=== PATIENT | male | born 1955 | race Caucasian/White ===

== ENCOUNTER 2017-04-09 13:17 | Inpatient (IN) | payer MEDICARE ==
[2017-04-09] MEDS ORDERED: IBUPROFEN 600 MG TABLET PO ONE (14:54)
--- NOTE | 2017-04-09 14:58 | ER Document Report ---
ED General - General Chief Complaint: Fever Stated Complaint: FEVER,HEADACHE Time Seen by Provider: 04/09/17 14:44 Mode of Arrival: Ambulatory Information source: Patient Notes: This is a 61-year-old male who presents for evaluation of fever, chills, and myalgias for the past 4 days. He states that he has felt subjective fevers and chills for 4 days but does not have a thermometer at home. He has been "aching all over". He also has a mild headache today. Of note he did have a "stomach virus" about 1 week ago but the vomiting and diarrhea has resolved. He also notes some dysuria for the past week. He has been tolerating PO ate a sausage biscuit for breakfast today without difficulty. His primary care physician is Dr. Moe. He has a prior history of BPH and an aortic dissection about 15 years ago. He also has hypertension, hyperlipidemia and GERD. Been compliant with his antihypertensive medications. TRAVEL OUTSIDE OF THE [place] IN LAST 30 DAYS: No Past Medical History - General Information source: Patient - Social History Smoking Status: Never Smoker Family History: Reviewed & Not Pertinent - Past Medical History Cardiac Medical History: Reports: Hx Hypercholesterolemia, Hx Hypertension, Other - aortic dissection 2001 Renal/ Medical History: Denies: Hx Peritoneal Dialysis GI Medical History: Reports: Hx Gastroesophageal Reflux Disease Review of Systems - Review of Systems Constitutional: See HPI, Chills, Fever, Malaise EENT: No symptoms reported Cardiovascular: No symptoms reported. denies: Chest pain, Palpitations Respiratory: No symptoms reported. denies: Cough Gastrointestinal: No symptoms reported, See HPI Genitourinary: See HPI Musculoskeletal: No symptoms reported, Muscle pain Skin: No symptoms reported Hematologic/Lymphatic: No symptoms reported Neurological/Psychological: No symptoms reported, See HPI Physical Exam - Vital signs Vitals: Temp Pulse Resp BP Pulse Ox 98 F 66 14 122/63 99 04/09/17 13:21 04/09/17 13:21 04/09/17 13:21 04/09/17 13:21 04/09/17 13:21 - Notes Notes: PHYSICAL EXAMINATION: GENERAL: Well-appearing, well-nourished and in no acute distress. Pleasant and conversant HEAD: Atraumatic, normocephalic. EYES: Pupils equal round and reactive to light, extraocular movements intact, sclera anicteric, conjunctiva are normal. ENT: nares patent, oropharynx clear without exudates. Moist mucous membranes. NECK: Normal range of motion, supple without lymphadenopathy LUNGS: Breath sounds clear to auscultation bilaterally and equal. No wheezes rales or rhonchi. HEART: Regular rate and rhythm without murmurs ABDOMEN: Soft, nontender, normoactive bowel sounds. No guarding, no rebound. No masses appreciated. EXTREMITIES: Normal range of motion, no pitting or edema. No cyanosis. NEUROLOGICAL: Cranial nerves grossly intact. Normal speech. No Gross focal motor or sensory deficits appreciated. PSYCH: Normal mood, normal affect. SKIN: Warm, Dry, normal turgor, no rashes or lesions noted. Course - Re-evaluation Re-evalutation: 04/09/17 19:[address] Mcgowan regarding observation given uncertain etiology of leukopenia, thrombocytopenia. Patient overall states that he does not feel well. Pt's blood had to be redrawn 3 times secondary to persistent clotting and platelet clumping, which led to delay in lab results today. No obvious source of infection found today, I suspect possible viral etiology. Dr. Mcgowan to evaluate in ED. - Vital Signs Vital signs: Temp Pulse Resp BP Pulse Ox 97.9 F 59 L 16 102/37 L 99 04/09/17 18:37 04/09/17 18:37 04/09/17 18:37 04/09/17 18:37 04/09/17 18:37 - Laboratory Result Diagrams: 04/09/17 17:44 04/09/17 15:25 Laboratory results interpreted by me: 04/09/17 04/09/17 04/09/17 15:25 15:25 17:44 WBC 1.5 L* RBC 4.18 L Hgb 13.1 L RDW 14.6 H Plt Count 56 L Monocytes % (Manual) 18 H Abs Neuts (Manual) 0.8 L Sodium 135.6 L Direct Bilirubin 0.5 H AST 81 H Urine Urobilinogen 2.0 H Discharge - Discharge Clinical Impression: Thrombocytopenia Leukopenia Qualifiers: Leukopenia type: unspecified Qualified Code(s): D72.819 - Decreased white blood cell count, unspecified Condition: Stable
[2017-04-09 16:12] LABS: APPEARANCE,URINE CLEAR; BILIRUBIN,URINE NEGATIVE (NEGATIVE); GLUCOSE, URINE NEGATIVE (NEGATIVE); KETONES,URINE NEGATIVE (NEGATIVE); LEUKOCYTE ESTERASE,URINE NEGATIVE (NEGATIVE); NITRITE,URINE NEGATIVE (NEGATIVE); PROTEIN,URINE NEGATIVE (NEGATIVE); URINE SPECIFIC GRAVITY 1.012
[2017-04-09 16:27] LABS: ALANINE AMINOTRANSFERASE 55 U/L (21-72); ALBUMIN 3.5 g/dL (3.5-5.0); ALKALINE PHOSPHATASE 92 U/L (38-126); ANION GAP 8 (5-19); ASPARTATE AMINO TRANSFERASE 81 U/L (17-59); BILIRUBIN,DIRECT 0.5 mg/dL (0.0-0.4); BLOOD UREA NITROGEN 19 mg/dL (7-20); CALCIUM 8.5 mg/dL (8.4-10.2); CARBON DIOXIDE 26 mmol/L (22-30); CHLORIDE 102 mmol/L (98-107); CREATININE RESULT 0.98 mg/dL (0.52-1.25); GLUCOSE 90 mg/dL (75-110); SODIUM 135.6 mmol/L (137-145)
--- NOTE | 2017-04-09 16:28 | RADIOLOGY REPORT (SQ) ---
EXAM DESCRIPTION: CHEST PA/LAT COMPLETED DATE/TIME: 04/09/2017 4:15 pm REASON FOR STUDY: cough, fever COMPARISON: None. EXAM PARAMETERS: NUMBER OF VIEWS: two views TECHNIQUE: Digital Frontal and Lateral radiographic views of the chest acquired. RADIATION DOSE: NA LIMITATIONS: none FINDINGS: LUNGS AND PLEURA: No acute opacities, masses or pneumothorax. No pleural effusion. MEDIASTINUM AND HILAR STRUCTURES: Age-appropriate. HEART AND VASCULAR STRUCTURES: Heart normal size. No evidence for failure. BONES: No acute findings. HARDWARE: Sternotomy. OTHER: No other significant finding. IMPRESSION: No acute finding. TECHNICAL DOCUMENTATION: JOB ID: [id number] [employer]- All Rights Reserved
[2017-04-09 18:08] LABS: HEMATOCRIT 38.9 % (37.9-51.0); HEMOGLOBIN 13.1 g/dL (13.5-17.0); HGB HCT DIFFERENCE 0.4; MEAN CORPUSCULAR HEMOGLOBIN 31.3 pg (27.0-33.4); MEAN CORPUSCULAR HGB CONC 33.6 g/dL (32.0-36.0); MEAN CORPUSCULAR VOLUME 93 fl (80-97); RED BLOOD COUNT 4.18 10^6/uL (4.35-5.55); RED CELL DISTRIBUTION WIDTH 14.6 % (11.5-14.0)
[2017-04-09 18:20] LABS: BASOPHILS % (MANUAL) 0 % (0-2); EOSINOPHILS % (MANUAL) 0 % (0-6); LYMPHOCYTES % (MANUAL) 28 % (13-45); TOTAL CELLS COUNTED 50
[2017-04-09 18:23] LABS: OVALOCYTES SLIGHT; POIKILOCYTOSIS SLIGHT
[2017-04-09 18:26] LABS: WHITE BLOOD COUNT 1.5 10^3/uL (4.0-10.5)
[2017-04-09] MEDS ORDERED: HYDROCODONE/ACETAMINOPHEN 5-325 MG TABLET PO ONE (18:42)
--- NOTE | 2017-04-09 19:54 | RADIOLOGY REPORT (SQ) ---
EXAM DESCRIPTION: CT HEAD WITHOUT COMPLETED DATE/TIME: 04/09/2017 7:20 pm REASON FOR STUDY: headache, thrombocytopenia COMPARISON: None. TECHNIQUE: Axial images acquired through the brain without intravenous contrast. Images reviewed wi th bone, brain and subdural windows. Images stored on PACS. All CT scanners at this facility use dose modulation, iterative reconstruction, and/or weight based d osing when appropriate to reduce radiation dose to as low as reasonably achievable (ALARA). [facility]: Dose Right [facility]: CareDose [facility]: Dose Right [facility]: Teradose 4D [facility]: Seeqpod RADIATION DOSE: 64.61 mGy. LIMITATIONS: None. FINDINGS: VENTRICLES: Normal size and contour. CEREBRUM: No masses. No hemorrhage. No midline shift. Normal pierson/white matter differentiation. N o evidence for acute infarction. CEREBELLUM: No masses. No hemorrhage. No alteration of density. No evidence for acute infarction. EXTRAAXIAL SPACES: No fluid collections. No masses. ORBITS AND GLOBE: No intra- or extraconal masses. Normal contour of globe without masses. CALVARIUM: No fracture. PARANASAL SINUSES: No fluid or mucosal thickening. SOFT TISSUES: No mass or hematoma. OTHER: No other significant finding. IMPRESSION: No acute intracranial findings. TECHNICAL DOCUMENTATION: JOB ID: [id number] Quality ID # [id number]: Final reports with documentation of one or more dose reduction techniques (e.g., Au tomated exposure control, adjustment of the mA and/or kV according to patient size, use of iterative reconstruction technique) 2010 [employer]- All Rights Reserved
[2017-04-09 20:31] LABS: PROTHROMBIN TIME 14.6 SEC (11.4-15.4)
[2017-04-09] MEDS ORDERED: NORMAL SALINE 1000 ML 1,000 ML IV ONE (20:31)
--- NOTE | 2017-04-09 21:09 | EKG REPORT ---
SEVERITY:- ABNORMAL ECG - SINUS RHYTHM VENTRICULAR BIGEMINY PROBABLE LEFT ATRIAL ABNORMALITY BORDERLINE LEFT AXIS DEVIATION NONSPECIFIC T ABNORMALITIES, ANT-LAT LEADS : Confirmed by: Andrews Mckeon 09-Apr-2017 21:09:01
[2017-04-09] MEDS: ACETAMINOPHEN 325 MG TABLET PO PRN (21:31)
[2017-04-09] MEDS: HEPARIN SOD (PORCINE) 5,000 UNIT/ML 1 ML SYRINGE SUBCUT SCH (21:31)
[2017-04-09] MEDS: MAG HYDROX/AL HYDROX/SIMETH SUSP 30 ML UDCUP PO PRN (21:56)
[2017-04-10] MEDS ORDERED: OXYCODONE HCL IR 5 MG TABLET PO PRN (00:13)
[2017-04-10] MEDS ORDERED: OXYCODONE HCL IR 5 MG TABLET ONE (00:17)
--- NOTE | 2017-04-10 00:31 | PDOC H&P ---
History of Present Illness Admission Date/PCP: 04/09/17 20:27 Patient complains of: Fever headache joint pain History of Present Illness: CARLO GUSTAFSON is a 61 year old male with a past medical history of remote aortic dissection, hypertension, dyslipidemia and chronic hepatitis C. Patient had been in his usual state of health until approximately 2 weeks ago with complaints of abdominal pain and diarrhea 3 days then a recurrence 5 days later with spontaneous resolution. This was consistent with symptoms of his grandchildren at the same time. However 4 days ago he began with generalized joint pain, headache fever and rigors prompting him to seek evaluation in the emergency room. He denies recent change or new medicine. He denies previous episode. In the emergency room he was found to have leukopenia of 1.5 with monocyte predominance, platelets of 56,000 and referred to the hospitalist for admission. Denies any recent weight loss rash or lymphadenopathy. Past Medical History Cardiac Medical History: Reports: Hyperlipidema, Hypertension, Other - aortic dissection 2001 Denies: Congestive Heart Failure, Myocardial Infarction Pulmonary Medical History: Denies: Asthma, Bronchitis, Chronic Obstructive Pulmonary Disease (COPD), Pneumonia, Tuberculosis Neurological Medical History: Denies: Seizures Renal/ Medical History: Denies: End Stage Renal Disease GI Medical History: Reports: Gastroesophageal Reflux Disease, Other - Chronic untreated hepatitis C Denies: Cirrhosis Musculoskeltal Medical History: Denies: Arthritis Psychiatric Medical History: Denies: Bipolar Disorder, Depression Hematology: Denies: Anemia, Bleeding Tendencies Past Surgical History Past Surgical History: Reports: Other - Aortic aneurysm repair Social History Information Source: Patient Lives with: Family Smoking Status: Never Smoker Frequency of Alcohol Use: None Drugs: None - Advance Directive Resuscitation Status: Full Code Family History Family History: DM, Other - Denies lymphoma or leukemia Parental Family History Reviewed: Yes Children Family History Reviewed: Yes Sibling(s) Family History Reviewed.: Yes Review of Systems Constitutional: ABSENT: chills, fever(s), headache(s), weight gain, weight loss Eyes: ABSENT: visual disturbances Ears: ABSENT: hearing changes Cardiovascular: ABSENT: chest pain, dyspnea on exertion, edema, orthropnea, palpitations Respiratory: ABSENT: cough, hemoptysis Gastrointestinal: ABSENT: abdominal pain, constipation, diarrhea, hematemesis, hematochezia, nausea, vomiting Genitourinary: ABSENT: dysuria, hematuria Musculoskeletal: ABSENT: joint swelling Integumentary: ABSENT: rash, wounds Neurological: ABSENT: abnormal gait, abnormal speech, confusion, dizziness, focal weakness, syncope Psychiatric: ABSENT: anxiety, depression, homidical ideation, suicidal ideation Endocrine: ABSENT: cold intolerance, heat intolerance, polydipsia, polyuria Hematologic/Lymphatic: ABSENT: easy bleeding, easy bruising Physical Exam Vital Signs: Temp Pulse Resp BP Pulse Ox 97.9 F 52 L 18 132/54 H 100 04/09/17 18:37 04/09/17 22:16 04/09/17 22:16 04/09/17 22:16 04/09/17 22:16 General appearance: PRESENT: no acute distress, well-developed, well-nourished Head exam: PRESENT: atraumatic, normocephalic Eye exam: PRESENT: conjunctiva pink, EOMI, PERRLA. ABSENT: scleral icterus Ear exam: PRESENT: normal external ear exam Mouth exam: PRESENT: moist, tongue midline Neck exam: ABSENT: carotid bruit, JVD, lymphadenopathy, thyromegaly Respiratory exam: PRESENT: clear to auscultation neal. ABSENT: rales, rhonchi, wheezes Cardiovascular exam: PRESENT: RRR. ABSENT: diastolic murmur, rubs, systolic murmur Pulses: PRESENT: normal dorsalis pedis pul Vascular exam: PRESENT: normal capillary refill GI/Abdominal exam: PRESENT: normal bowel sounds, soft. ABSENT: distended, guarding, mass, organolmegaly, rebound, tenderness Rectal exam: PRESENT: deferred Extremities exam: PRESENT: full ROM. ABSENT: calf tenderness, clubbing, pedal edema Neurological exam: PRESENT: alert, awake, oriented to person, oriented to place , oriented to time, oriented to situation, CN II-XII grossly intact. ABSENT: motor sensory deficit Psychiatric exam: PRESENT: appropriate affect, normal mood. ABSENT: homicidal ideation, suicidal ideation Skin exam: PRESENT: dry, intact, warm. ABSENT: cyanosis, rash Results Impressions: Chest X-Ray 04/09/17 14:53 IMPRESSION: No acute finding. Head CT 04/09/17 18:42 IMPRESSION: No acute intracranial findings. Assessment & Plan - Diagnosis (1) Hepatitis C Qualifiers: Viral hepatitis chronicity: chronic Is this a current diagnosis for this admission?: YesPlan: Chronic and untreated. No evidence of cryoglobulinemia. Concern for hepatitis C related myelodysplasia with thrombocytopenia and leukopenia. will obtain GI consultation (2) Leukopenia Qualifiers: Leukopenia type: unspecified Qualified Code(s): D72.819 - Decreased white blood cell count, unspecified Is this a current diagnosis for this admission?: YesPlan: Suspected myelodysplasia will repeat CBC and obtain hematology consult (3) Thrombocytopenia Is this a current diagnosis for this admission?: YesPlan: Concern for lymphoma, will obtain hematology consult - Time Time Spent: 50 to 70 Minutes - Inpatient Certification Medical Necessity: Need Close Monitoring Due to Risk of Patient Decompensation
[2017-04-10 03:07] LABS: ADD HIVPANEL? NO; HIV (1 AND 2) ANTIBODY NEGATIVE (NEGATIVE)
[2017-04-10] MEDS: HEPARIN SOD (PORCINE) 5,000 UNIT/ML 1 ML SYRINGE SUBCUT SCH (05:25)
[2017-04-10 07:00] LABS: ALANINE AMINOTRANSFERASE 51 U/L (21-72); ALBUMIN 2.6 g/dL (3.5-5.0); ALKALINE PHOSPHATASE 67 U/L (38-126); ANION GAP 5 (5-19); ASPARTATE AMINO TRANSFERASE 64 U/L (17-59); BILIRUBIN,DIRECT 0.4 mg/dL (0.0-0.4); BILIRUBIN,TOTAL 0.8 mg/dL (0.2-1.3); BLOOD UREA NITROGEN 18 mg/dL (7-20); CARBON DIOXIDE 23 mmol/L (22-30); CHLORIDE 107 mmol/L (98-107); CREATININE RESULT 0.89 mg/dL (0.52-1.25); GLUCOSE 85 mg/dL (75-110); POTASSIUM 4.3 mmol/L (3.6-5.0); TOTAL PROTEIN 5.6 g/dL (6.3-8.2)
[2017-04-10 08:08] LABS: ABSOLUTE LYMPHOCYTES (AUTO) 0.3 10^3/uL (0.5-4.7); ABSOLUTE MONOCYTES (AUTO) 0.2 10^3/uL (0.1-1.4); ABSOLUTE NEUT (AUTO) 0.5 10^3/uL (1.7-8.2); BASOPHILS % (AUTO) 1.3 % (0-2); EOSINOPHILS % (AUTO) 0.6 % (0-6); HEMATOCRIT 34.3 % (37.9-51.0); HEMOGLOBIN 11.5 g/dL (13.5-17.0); HGB HCT DIFFERENCE 0.2; LYMPHOCYTES % (AUTO) 31.4 % (13-45); MEAN CORPUSCULAR HEMOGLOBIN 31.3 pg (27.0-33.4); MEAN CORPUSCULAR HGB CONC 33.7 g/dL (32.0-36.0); MEAN CORPUSCULAR VOLUME 93 fl (80-97); MONOCYTES % (AUTO) 17.3 % (3-13); RED BLOOD COUNT 3.69 10^6/uL (4.35-5.55); RED CELL DISTRIBUTION WIDTH 14.4 % (11.5-14.0); SEGMENTED NEUTROPHILS % (AUTO) 49.4 % (42-78)
[2017-04-10] MEDS: ACETAMINOPHEN 325 MG TABLET PO PRN ×2 (08:47→21:29)
[2017-04-10] MEDS: DOCUSATE SODIUM 100 MG CAPSULE PO SCH ×2 (09:29→17:27)
[2017-04-10 09:36] LABS: ANISOCYTOSIS SLIGHT; OVALOCYTES SLIGHT; POIKILOCYTOSIS 1+
[2017-04-10 09:37] LABS: ROULEAUX SLIGHT; TARGET CELLS SLIGHT; TEAR DROP CELLS SLIGHT
[2017-04-10] MEDS ORDERED: VANCOMYCIN HCL 0 MG in DEXTROSE 5%-WATER 250 ML IV NR (10:30)
--- NOTE | 2017-04-10 10:49 | PROGRESS NOTE E ---
Progress Note NAME: CARLO GUSTAFSON : 1955 AGE: 61Y DATE: 04/10/2017 ROOM: 431 Time spent managing the patient was 35 minutes. SUBJECTIVE: The patient still feels generally weak. He is having low-grade fevers and complains of headaches that have been going on for the past 4 days. It sounds like he may have had some photophobia as well as he was wanting to lay in a dark room all the time for the past 4 days. He has no nausea or vomiting. He has no neck stiffness. OBJECTIVE: VITAL SIGNS: Temperature 97.6, recent temperature 100.2. Blood pressure 122/49, pulse 52, respirations 17. GENERAL: The patient is alert but somewhat ill appearing, answers questions appropriately. HEENT: Sclera is nonicteric. Conjunctivae are clear. Extraocular eye movements are intact. Pupils equal, round and reactive to light and accommodation. Oropharynx has moist mucous membranes. NECK: No nuchal rigidity noted. RESPIRATORY: Clear to auscultation in all lung green. No rhonchi. CARDIAC: Regular rate and rhythm. No murmurs, gallops, rubs. ABDOMEN: Soft, nontender, and nondistended. Positive bowel sounds. No rebound. No guarding. EXTREMITIES: Have no edema, cyanosis, clubbing. NEUROLOGIC: Cranial nerves intact. Good strength and sensation in all 4 extremities. IMAGING: Head CT shows no acute intracranial findings. The patient has no sinus disease noted on head CT. Chest x-ray shows no acute process. LABORATORY STUDIES: White blood count is 1, hemoglobin 11.5, platelets 54. Rhea test and HIV screen are negative. Urinalysis is negative. Blood cultures are pending. ASSESSMENT AND PLAN: 1. SYSTEMIC INFLAMMATORY RESPONSE SYNDROME. Exact etiology is unclear at this time. Given the patient's negative workup so far and the fact that he has headaches and possible photophobia, I am compelled to rule out meningitis. I will start him empirically on IV Rocephin, IV Unasyn, IV vancomycin and IV acyclovir. The patient is at risk for developing SECTION [employer] WARDEN infection given leukopenia. Will check lumbar puncture. 2. HEADACHE AND FEVERS. Rule out meningitis as mentioned above. Treat empirically for now. Also check a sed rate and vasculitis panel. Check Lyme titer and [place] Spotted Fever titer. The patient denies tick exposure. 3. LEUKOPENIA/THROMBOCYTOPENIA. Possibly secondary to acute infection. Also possibly secondary to hepatitis C. Dr. Cavanaugh of Hematology is following. Treat infectious disease issues as mentioned above. Evaluate for vasculitis as mentioned above. Use neutropenic precautions. Will discontinue subcutaneous heparin due to thrombocytopenia. 4. HEPATITIS C. This can be associated with certain vasculitis. I will check a vasculitis panel and sed rate. GI was consulted. The patient will need to follow up with GI. 5. HYPERTENSION. Hold blood pressure medicines for now due to low blood pressure readings. DICTATING PHYSICIAN: DARIA DOBBINS M.D. [id number] PHY#: [id number] [id number] JOB#: [id number] ACCT: [id number] cc: >
[2017-04-10] MEDS ORDERED: VANCOMYCIN HCL 1,000 MG in DEXTROSE 5%-WATER 250 ML IV ONE (11:00)
[2017-04-10] MEDS: OXYCODONE HCL IR 5 MG TABLET PO PRN ×2 (11:45→21:28)
[2017-04-10] MEDS ORDERED: CEFTRIAXONE 2 GM/D5W RTU 2 GM/50 ML RTUPB IV SCH (12:00)
[2017-04-10 12:15] LABS: PATH REVIEW PATHOLOGIST REVIEWED
[2017-04-10 13:49] LABS: FOLATE 9.64 ng/mL (>2.76)
--- NOTE | 2017-04-10 13:56 | RADIOLOGY REPORT (SQ) ---
EXAM DESCRIPTION: LUMBAR PUNCTURE; FLUORO/NEEDLE PLACEMENT/SPINE COMPLETED DATE/TIME: 04/10/2017 1:45 pm REASON FOR STUDY: WILDE, fever; WILDE, FEVER D61.818 OTHER PANCYTOPENIA COMPARISON: CT brain 04/09/2017 MRI brain 07/21/2016 FLUOROSCOPY TIME: 13 seconds 1 digital radiographic images saved to PACS. TECHNIQUE: Fluoroscopic guided lumbar puncture. LIMITATIONS: None. PROCEDURE: After written consent and assessment were obtained, the patient was brought into the fluo roscopy room and placed prone on the table. The patient's lower back was prepped in a sterile fashio n and an entry site was selected under live fluoroscopic guidance. The entry site was anesthetized wi th 4 mL of 1% lidocaine. A 22 gauge needle was advanced through the skin and into the thecal sac at t he level left paracentral L2-3 level. After approximately 8 ml was drained, the needle was removed a nd a sterile bandage was placed of the site. Specimens were sent to the lab for testing. A fluorosc opic spot image was saved to PACS confirming level access. FINDINGS: Clear CSF, opening pressure 15 cm of water. Fluid specimens were sent to the lab for test ing as per Dr. Bang. IMPRESSION: Lumbar puncture under fluoroscopy. No immediate complication. COMMENT: Patient medication list reviewed: Yes- Quality ID# [id number]:Eligible professional attests to doc umenting in the medical record they obtained, updated, or reviewed the patient's current medications. . Quality ID 145: Final reports for procedures using fluoroscopy that document radiation exposure clem tarun, or exposure time and number of fluorographic images (if radiation exposure indices are not avail able) TECHNICAL DOCUMENTATION: JOB ID: [id number] [employer]- All Rights Reserved
[2017-04-10] MEDS ORDERED: ACYCLOVIR SODIUM 750 MG in NORMAL SALINE 250 ML IV SCH (14:00)
[2017-04-10 14:16] LABS: GLUCOSE,CSF 47 mg/dL (40-70)
[2017-04-10 14:18] LABS: APPEARANCE ALL TUBES CLEAR; RBC SIDE 1 1; RBC SIDE 2 3
[2017-04-10 14:20] LABS: RBC DILUENT USED NONE USED; RBC DILUTION FACTOR 1; TOTAL RBC SQUARES COUNTED 225; WHITE BLOOD CELL,CSF 1 /uL (0-5)
[2017-04-10 14:29] LABS: H. INFLUENZAE TYPE B AG NEGATIVE (NEGATIVE); S. PNEUMONIAE AG NEGATIVE (NEGATIVE)
[2017-04-10 14:30] LABS: CSF CULTURED REQUIRED YES (CSFY); STREP. GROUP B AG NEGATIVE (NEGATIVE)
[2017-04-10] MEDS ORDERED: AMPICILLIN SODIUM/SULBACTAM NA 1.5 GM in NORMAL SALINE 50 ML IV SCH (15:00)
--- NOTE | 2017-04-10 15:09 | Physician Advisory Note ---
Physician Advisor ProgressNote .: Pursuant to the plan for [facility], I have reviewed the medical record for this patient. Physician Advisor Statement: Possible documentation opportunities if attending agrees: 1. "worsening pancytopenia, etiology unclear" 2. "suspected bacterial infection of unclear etiology" 3. If you believe pt has SIRS, please document what other criterion pt meets for this besides the WBC <4K - T>100.4 not yet documented, HR >90 & RR>20 not yet documened. Otherwise, please document this dx was r/o'd. - If you suspect pt has SIRS & infxn, you'll also need to specify whether or not you think pt has sepsis, & what it is likely due to. 3. "mild hyponatremia, possibly due to ___" [his home HCTZ tx?] As always, if concerned about any unstable VS or abnormal labs, please comment on them - what bad things they might indicate, why they concern you - & note what doing about them. Please also document each day the potential clinical problems you are concerned could occur if pt not kept in hospital for tx at this time. (These points are ackerman - if present in each note, attending's status decision should be sufficiently supported.) Discussion: 61yo male w/ chronic co-morbidities including HTN, HLD, chronic untx'd hep C, GERD, BPH, & aortic dissection in 2001 - typically taking Toprol XL 150mg/ Cosaar 100mg/HCTZ 25mg/ASA daily - presented 5/ PM to ED w/ F/C/mild HAs/myalgias/dysuria sx after recently recovering from a "stomach virus", photophobia. (+) T98, HR 66 (on beta-hamlet), RR14, BP 122/63, O2 sat 99%, but WBC 1.5K with ANC 800, Hgb 13.1, plts 56, Na 135.6, glc 90, BUN 19, Cr 0.98, AST 81. BP dropped as low as 102/37. Attending ordered leukemia/lymphoma panel, NS @200ml x1L, Hem-onc consult, GI consult, VS q4h, I/Os, daily wts, falls precautions, neutropenic precautions, then IV Rocephin/vanc/Unasyn/Acyclovir w/f/u labs & LP w/CSF cx, etc. Status: Attending concerned for bacterial infxn of unclear etiology, very concerned for worsening pancytopenia of unknown etiology, high risk for dangerous systemic infections given neutropenia, has mentioned possibility of myelodysphasia, lymphoma, acute meningitis, tick-borne illness, vasculitis. He is further concerned by the hypotension, & wants to hold pt's usual BP meds due to risk of developing worsening hypotension. Pt has become persistently bradycardic & feels generally weak today. Pt's pancytopenia has worsened on all counts. AST remains elevated. Hem-onc has ordered abd U/S w/doppler for AM for further eval. Pt has been under hospital care for 1MN already. There is no likelihood of pt being considered sufficiently stable for safe d/c today. Tx & monitoring in inpatient hospital setting medically reasonable & necessary to protect pt's health, safety, & medical condition. Appropriate for Inpt status. Thanks for your help with documentation accuracy/specificity improvement! Gloria Barajas MD [facility] Physician Advisor, Fellow of Hospital Medicine
[2017-04-10] MEDS: MAG HYDROX/AL HYDROX/SIMETH SUSP 30 ML UDCUP PO PRN (15:52)
--- NOTE | 2017-04-10 17:25 | Progress Note ---
Provider Note Provider Note: Lumbar puncture unremarkable for infection. Discontinue IV Unasyn, IV vancomycin, IV acyclovir. Continue IV Rocephin for now pending further cultures.
[2017-04-10] MEDS: OXYCODONE-ACETAMINOPHEN 5-325 MG TABLET PO PRN (17:30)
[2017-04-10] MEDS ORDERED: VANCOMYCIN HCL 1,000 MG in DEXTROSE 5%-WATER 250 ML IV SCH (18:00)
--- NOTE | 2017-04-10 18:37 | PDOC CONSULTATION ---
Consultation Consult Date: 04/10/17 Consult reason:: Cytopenias History of Present Illness Admission Date/PCP: 04/10/17 15:25 History of Present Illness: CARLO GUSTAFSON is a 61 year old male with a past medical history of remote aortic dissection, hypertension, dyslipidemia and chronic hepatitis C previously treated with Interferon and known prior cytopenias for at least the platelets. Patient had been in his usual state of health until approximately 2 weeks ago with complaints of abdominal pain and diarrhea 3 days following his grandchildren having the same symptoms. He then a recurrence 5 days later with spontaneous resolution. He reports losing approximately 20 pounds with these symptoms. However 4 days ago he began with generalized joint pain, headache, fever and rigors prompting him to seek evaluation in the emergency room. He denies recent change or new medicine. He denies previous episode. In the emergency room, he was found to have leukopenia of 1.5 with monocyte predominance, platelets of 56,000 and referred to the hospitalist for admission. Denies any recent weight loss rash or lymphadenopathy. He has been started on BSA's. His biggest complaint this am is a headache but he had a negative Head CT. Past Medical History Cardiac Medical History: Reports: Hyperlipidema, Hypertension, Other - aortic dissection 2001 Denies: Congestive Heart Failure, Myocardial Infarction Pulmonary Medical History: Denies: Asthma, Bronchitis, Chronic Obstructive Pulmonary Disease (COPD), Pneumonia, Tuberculosis Neurological Medical History: Denies: Seizures Renal/ Medical History: Denies: End Stage Renal Disease GI Medical History: Reports: Gastroesophageal Reflux Disease, Other - Chronic treated hepatitis C Denies: Cirrhosis Musculoskeltal Medical History: Denies: Arthritis Psychiatric Medical History: Denies: Bipolar Disorder, Depression Hematology: Denies: Anemia, Bleeding Tendencies Past Surgical History Past Surgical History: Reports: Other - Aortic aneurysm repair Social History Lives with: Family Smoking Status: Never Smoker Frequency of Alcohol Use: None Drugs: None - Advance Directive Resuscitation Status: Full Code Family History Family History: DM, Other - Denies lymphoma or leukemia Parental Family History Reviewed: Yes Children Family History Reviewed: Yes Sibling(s) Family History Reviewed.: Yes Medication/Allergy Home Medications: Aspirin [Aspirin 81 mg Chewable Tablet] 81 mg PO DAILY 04/10/17 Cetirizine HCl [Zyrtec 10 mg Tablet] 10 mg PO DAILY 04/10/17 Hydrochlorothiazide 25 mg PO DAILY 04/10/17 Losartan Potassium [Cozaar 100 mg Tablet] 100 mg PO DAILY 04/10/17 Metoprolol Succinate [Toprol XL 100 mg Tablet] 150 mg PO DAILY 04/10/17 Omeprazole 40 mg PO DAILY 04/10/17 Allergies/Adverse Reactions: No Known Allergies Allergy (Unverified 04/10/17 00:47) Review of Systems Constitutional: PRESENT: chills, weight loss Gastrointestinal: PRESENT: as per HPI Genitourinary: PRESENT: as per HPI Hematologic/Lymphatic: PRESENT: easy bruising Physical Exam Vital Signs: Temp Pulse Resp BP Pulse Ox 98.1 F 61 16 118/52 L 98 04/10/17 15:00 04/10/17 15:00 04/10/17 15:00 04/10/17 15:00 04/10/17 15:00 Intake & Output 04/09/17 04/10/17 04/11/17 06:59 06:59 06:59 Intake Total 600 Balance 600 General appearance: PRESENT: no acute distress Head exam: PRESENT: atraumatic, normocephalic Eye exam: PRESENT: EOMI, PERRLA Ear exam: PRESENT: normal external ear exam Mouth exam: PRESENT: neck supple, tongue midline Neck exam: PRESENT: full ROM Respiratory exam: PRESENT: clear to auscultation neal GI/Abdominal exam: PRESENT: normal bowel sounds, soft Neurological exam: PRESENT: alert, awake, oriented to person, oriented to place , oriented to time, oriented to situation, CN II-XII grossly intact Psychiatric exam: PRESENT: appropriate affect Results Impressions: Chest X-Ray 04/09/17 14:53 IMPRESSION: No acute finding. Head CT 04/09/17 18:42 IMPRESSION: No acute intracranial findings. Guidance Fluoroscopy 04/10/17 00:00 IMPRESSION: Lumbar puncture under fluoroscopy. No immediate complication. Lumbar Puncture 04/10/17 10:22 IMPRESSION: Lumbar puncture under fluoroscopy. No immediate complication. Assessment & Plan - Diagnosis (1) Hepatitis C Qualifiers: Viral hepatitis chronicity: chronic Is this a current diagnosis for this admission?: YesPlan: check titer (2) Leukopenia Qualifiers: Leukopenia type: unspecified Qualified Code(s): D72.819 - Decreased white blood cell count, unspecified Is this a current diagnosis for this admission?: YesPlan: Check flow cytometry and prior labs (3) Thrombocytopenia Is this a current diagnosis for this admission?: YesPlan: Suspect chronic from his h/o chronic hep C - Time Time Spent: 50 to 70 Minutes Critical Time spent with patient: 25-34 minutes Medications reviewed and adjusted accordingly: Yes Anticipated discharge: Home Within: within 72 hours
[2017-04-11] MEDS: MAG HYDROX/AL HYDROX/SIMETH SUSP 30 ML UDCUP PO PRN
--- NOTE | 2017-04-11 00:11 | EKG REPORT ---
SEVERITY:- ABNORMAL ECG - SINUS RHYTHM VENTRICULAR BIGEMINY PROBABLE LEFT ATRIAL ABNORMALITY NONSPECIFIC T ABNORMALITIES, ANT-LAT LEADS : Confirmed by: Andrews Mckeon 11-Apr-2017 00:10:59
[2017-04-11] MEDS ORDERED: LANSOPRAZOLE 30 MG TAB.RAP.DR PO SCH (06:00)
[2017-04-11 06:48] LABS: ALANINE AMINOTRANSFERASE 48 U/L (21-72); ALBUMIN 2.8 g/dL (3.5-5.0); ALKALINE PHOSPHATASE 85 U/L (38-126); ANION GAP 6 (5-19); ASPARTATE AMINO TRANSFERASE 71 U/L (17-59); BILIRUBIN,DIRECT 0.4 mg/dL (0.0-0.4); BILIRUBIN,TOTAL 0.6 mg/dL (0.2-1.3); BLOOD UREA NITROGEN 15 mg/dL (7-20); CALCIUM 7.9 mg/dL (8.4-10.2); CARBON DIOXIDE 25 mmol/L (22-30); CHLORIDE 104 mmol/L (98-107); CREATININE RESULT 0.81 mg/dL (0.52-1.25); GLUCOSE 107 mg/dL (75-110); POTASSIUM 4.4 mmol/L (3.6-5.0)
[2017-04-11] MEDS: OXYCODONE-ACETAMINOPHEN 5-325 MG TABLET PO PRN (06:51)
[2017-04-11 06:57] LABS: HEMATOCRIT 36.6 % (37.9-51.0); HEMOGLOBIN 12.3 g/dL (13.5-17.0); HGB HCT DIFFERENCE 0.3; MEAN CORPUSCULAR HEMOGLOBIN 31.3 pg (27.0-33.4); MEAN CORPUSCULAR HGB CONC 33.5 g/dL (32.0-36.0); MEAN CORPUSCULAR VOLUME 93 fl (80-97); RED BLOOD COUNT 3.92 10^6/uL (4.35-5.55); RED CELL DISTRIBUTION WIDTH 14.4 % (11.5-14.0); WHITE BLOOD COUNT 1.9 10^3/uL (4.0-10.5)
[2017-04-11 07:20] LABS: HEPATITIS C VIRUS AB >11.0 s/co ratio (0.0-0.9)
[2017-04-11 07:23] LABS: BASOPHILS % (MANUAL) 2 % (0-2); EOSINOPHILS % (MANUAL) 4 % (0-6); LYMPHOCYTES % (MANUAL) 46 % (13-45); TOTAL CELLS COUNTED 50
[2017-04-11 07:28] LABS: ANISOCYTOSIS SLIGHT; OVALOCYTES SLIGHT; POIKILOCYTOSIS SLIGHT; ROULEAUX 1+
--- NOTE | 2017-04-11 08:05 | RADIOLOGY REPORT (SQ) ---
EXAM DESCRIPTION: U/S ABDOMEN COMPLETE W/DOPPLER COMPLETED DATE/TIME: 04/11/2017 7:23 am REASON FOR STUDY: EVAL OF LIVER AND SPLEEN D61.818 OTHER PANCYTOPENIA COMPARISON: Abdominal ultrasound 07/04/2016 TECHNIQUE: Dynamic and static grayscale images acquired of the abdomen and recorded on PACS. Induo pattie selected color Doppler and spectral images recorded. LIMITATIONS: None. FINDINGS: PANCREAS: Midline pancreas unremarkable LIVER: No masses. Coarse echotexture from diffuse hepatocellular disease. LIVER VASCULATURE: Normal directional flow of the main portal vein and hepatic veins. GALLBLADDER: There is right upper quadrant free fluid along the subphrenic space, and in the gallblad dev fossa. There is diffuse gallbladder wall thickening, up to 9 mm in thickness. No gallstones. ULTRASOUND-DETECTED MORALES'S SIGN: Negative. INTRAHEPATIC DUCTS AND COMMON DUCT: CBD and intrahepatic ducts normal caliber. No filling defects. C ommon bile duct at the thaddeus hepatis 3.7 mm. Distal most common duct not well seen. INFERIOR VENA CAVA: Normal flow. AORTA: No aneurysm. RIGHT KIDNEY: Normal size. Normal echogenicity. No solid or suspicious masses. No hydronephros is. No calcifications. LEFT KIDNEY: Normal size. Normal echogenicity. No solid or suspicious masses. No hydronephrosi s. No calcifications. SPLEEN: 20 cm in length, increased compared dated 07/04/2016, when it measured about 15 cm in length. PERITONEAL AND PLEURAL SPACES: Trace ascites OTHER: No other significant finding. IMPRESSION: Splenomegaly, 20 cm in length Small amount of right subphrenic and gallbladder fossa free fluid. Gallbladder wall thickening, nonspecific in the setting of ascites TECHNICAL DOCUMENTATION: JOB ID: [id number] [employer]- All Rights Reserved
--- NOTE | 2017-04-11 09:15 | PDOC DISCHARGE SUMMARY ---
General - Admit/Disc Date/PCP Admission Date/Primary Care Provider: 04/10/17 15:25 Discharge Date: 04/11/17 - Discharge Diagnosis (1) Sinusitis Is this a current diagnosis for this admission?: YesSummary: Patient presented with headache, photophobia, fever. Lumbar puncture was unremarkable for infection. Lyme titer is pending. Patient responded to empiric IV Rocephin. We will complete oral doxycycline for sinusitis. Patient can follow-up with Dr. Cavanaugh for further pending lab results specifically Lyme titer. (2) Hypertension Is this a current diagnosis for this admission?: YesSummary: Patient blood pressure medicines were initially held secondary to low blood pressure readings. I will decrease his metoprolol to 100 mg daily. Continue hydrochlorothiazide and Cozaar. (3) Headache Is this a current diagnosis for this admission?: Yes (4) Fever Is this a current diagnosis for this admission?: Yes (5) Hepatitis C Is this a current diagnosis for this admission?: YesSummary: Right upper quadrant ultrasound showed findings consistent with cirrhosis and splenomegaly. (6) Leukopenia Is this a current diagnosis for this admission?: YesSummary: Was evaluated by Dr. Cavanaugh of hematology. She feels as though leukopenia and thrombocytopenia are secondary to hepatitis C/cirrhosis. Patient will follow up with Dr. Cavanaugh as an outpatient. (7) Thrombocytopenia Is this a current diagnosis for this admission?: Yes - Additional Information Resuscitation Status: Full Code Discharge Diet: Cardiac Discharge Activity: Activity As Tolerated Home Medications: Cetirizine HCl [Zyrtec 10 mg Tablet] 10 mg PO DAILY 04/10/17 Hydrochlorothiazide 25 mg PO DAILY 04/10/17 Losartan Potassium [Cozaar 100 mg Tablet] 100 mg PO DAILY 04/10/17 Omeprazole 40 mg PO DAILY 04/10/17 Doxycycline Hyclate 100 mg PO BID #20 capsule 04/11/17 Fluticasone Propionate [Flonase Nasal Effie 50 Mcg/Effie 16 gm] 1 spray NASL Q12 #1 inhaler 04/11/17 Metoprolol Succinate [Toprol XL 100 mg Tablet] 100 mg PO DAILY #0 04/11/17 Tramadol HCl 50 mg PO Q8HP PRN #20 tablet 04/11/17 History of Present Illness Patient complains of: Fever/headache History of Present Illness: CARLO GUSTAFSON is a 61 year old male with a past medical history of remote aortic dissection, hypertension, dyslipidemia and chronic hepatitis C. Patient had been in his usual state of health until approximately 2 weeks ago with complaints of abdominal pain and diarrhea 3 days then a recurrence 5 days later with spontaneous resolution. This was consistent with symptoms of his grandchildren at the same time. However 4 days ago he began with generalized joint pain, headache fever and rigors prompting him to seek evaluation in the emergency room. He denies recent change or new medicine. He denies previous episode. In the emergency room he was found to have leukopenia of 1.5 with monocyte predominance, platelets of 56,000 and referred to the hospitalist for admission. Denies any recent weight loss rash or lymphadenopathy. Hospital Course Hospital Course: See above Physical Exam Vital Signs: Temp Pulse Resp BP Pulse Ox 98.5 F 69 16 121/57 L 97 04/11/17 01:27 04/11/17 01:27 04/11/17 01:27 04/11/17 01:27 04/11/17 01:27 Intake & Output 04/10/17 04/11/17 04/12/17 06:59 06:59 06:59 Intake Total 1200 Balance 1200 Weight 102.1 kg GENERAL: No acute distress HEENT: Conjunctiva clear, nonicteric, moist mucous membranes, no JVD, midline trachea RESPIRATORY: Clear to auscultation bilaterally, no wheezes, no rhonchi CARDIAC: Regular rate and rhythm, no murmurs/gallops/rubs ABDOMEN: Soft, nondistended, nontender, positive bowel sounds, no rebound, no guarding EXTREMETIES: No edema, cyanosis, clubbing NEUROLOGIC: Alert, oriented to person/place/time, CN's grossly intact, no focal deficits SKIN: No rash, wounds PSYCH: Normal mood, normal affect Results Laboratory Results: 04/11/17 06:03 04/11/17 06:03 04/11/17 04/11/17 06:03 06:03 WBC 1.9 L RBC 3.92 L Hgb 12.3 L Hct 36.6 L MCV 93 MCH 31.3 MCHC 33.5 RDW 14.4 H Plt Count 55 L Seg Neutrophils % Not Reportable Lymphocytes % Not Reportable Monocytes % Not Reportable Eosinophils % Not Reportable Basophils % Not Reportable Absolute Neutrophils Not Reportable Absolute Lymphocytes Not Reportable Absolute Monocytes Not Reportable Absolute Eosinophils Not Reportable Absolute Basophils Not Reportable Sodium 135.0 L Potassium 4.4 Chloride 104 Carbon Dioxide 25 Anion Gap 6 BUN 15 Creatinine 0.81 Est GFR ( Amer) > 60 Est GFR (Non-Af Amer) > 60 Glucose 107 Calcium 7.9 L Magnesium 2.0 Total Bilirubin 0.6 AST 71 H ALT 48 Alkaline Phosphatase 85 Total Protein 6.0 L Albumin 2.8 L Labs- Last Values WBC 1.9 10^3/uL (4.0-10.5) L 04/11/17 06:03 RBC 3.92 10^6/uL (4.35-5.55) L 04/11/17 06:03 Hgb 12.3 g/dL (13.5-17.0) L 04/11/17 06:03 Hct 36.6 % (37.9-51.0) L 04/11/17 06:03 MCV 93 fl (80-97) 04/11/17 06:03 MCH 31.3 pg (27.0-33.4) 04/11/17 06:03 MCHC 33.5 g/dL (32.0-36.0) 04/11/17 06:03 RDW 14.4 % (11.5-14.0) H 04/11/17 06:03 Plt Count 55 10^3/uL (150-450) L 04/11/17 06:03 Total Counted 50 04/11/17 06:03 Seg Neutrophils % Not Reportable 04/11/17 06:03 Seg Neuts % (Manual) 30 % (42-78) L 04/11/17 06:03 Band Neutrophils % Cancelled 04/10/17 06:35 Lymphocytes % Not Reportable 04/11/17 06:03 Lymphocytes % (Manual) 46 % (13-45) H 04/11/17 06:03 Atypical Lymphs % 2 % (0) 04/11/17 06:03 Monocytes % Not Reportable 04/11/17 06:03 Monocytes % (Manual) 16 % (3-13) H 04/11/17 06:03 Eosinophils % Not Reportable 04/11/17 06:03 Eosinophils % (Manual) 4 % (0-6) 04/11/17 06:03 Basophils % Not Reportable 04/11/17 06:03 Basophils % (Manual) 2 % (0-2) 04/11/17 06:03 Metamyelocytes % Cancelled 04/10/17 06:35 Myelocytes % Cancelled 04/10/17 06:35 Promyelocytes % Cancelled 04/10/17 06:35 Immature Leukocytes % Cancelled 04/10/17 06:35 Absolute Neutrophils Not Reportable 04/11/17 06:03 Abs Neuts (Manual) 0.6 10^3/uL (1.7-8.2) L 04/11/17 06:03 Absolute Lymphocytes Not Reportable 04/11/17 06:03 Abs Lymphs (Manual) 0.9 10^3/uL (0.5-4.7) 04/11/17 06:03 Absolute Monocytes Not Reportable 04/11/17 06:03 Abs Monocytes (Manual) 0.3 10^3/uL (0.1-1.4) 04/11/17 06:03 Absolute Eosinophils Not Reportable 04/11/17 06:03 Absolute Eos (Manual) 0.1 10^3/uL (0.0-0.6) 04/11/17 06:03 Absolute Basophils Not Reportable 04/11/17 06:03 Abs Basophils (Manual) 0.0 10^3/uL (0.0-0.2) 04/11/17 06:03 Nucleated RBCs Cancelled 04/10/17 06:35 Differential Comment Cancelled 04/10/17 06:35 Hypersegmented Neuts Cancelled 04/10/17 06:35 Smudge Cells Cancelled 04/10/17 06:35 Toxic Granulation Cancelled 04/10/17 06:35 Toxic Vacuolation Cancelled 04/10/17 06:35 Dohle Bodies Cancelled 04/10/17 06:35 Frank Rods Cancelled 04/10/17 06:35 WBC Morphology Comment Cancelled 04/10/17 06:35 Platelet Estimate Cancelled 04/09/17 15:25 Clumped Platelets Cancelled 04/10/17 06:35 Large Platelets Cancelled 04/10/17 06:35 Giant Platelets Cancelled 04/10/17 06:35 Platelet Comment DECREASED 04/11/17 06:03 Polychromasia Cancelled 04/10/17 06:35 Hypochromasia Cancelled 04/10/17 06:35 Poikilocytosis SLIGHT 04/11/17 06:03 Basophilic Stippling Cancelled 04/10/17 06:35 Anisocytosis SLIGHT 04/11/17 06:03 Microcytosis Cancelled 04/10/17 06:35 Macrocytosis Cancelled 04/10/17 06:35 Spherocytes Cancelled 04/10/17 06:35 Pappenheimer Bodies Cancelled 04/10/17 06:35 Sickle Cells Cancelled 04/10/17 06:35 Target Cells SLIGHT 04/10/17 07:57 Tear Drop Cells SLIGHT 04/10/17 07:57 Ovalocytes SLIGHT 04/11/17 06:03 Stomatocytes Cancelled 04/10/17 06:35 Helmet Cells Cancelled 04/10/17 06:35 [place] Bodies Cancelled 04/10/17 06:35 Tessa Cells Cancelled 04/10/17 06:35 Acanthocytes (Spur) Cancelled 04/10/17 06:35 Rouleaux 1+ 04/11/17 06:03 Schistocytes Cancelled 04/10/17 06:35 RBC Morph Comment Cancelled 04/10/17 06:35 ESR 8 mm/hr (0-20) 04/10/17 10:41 PT 14.6 SEC (11.4-15.4) 04/09/17 17:00 INR 1.07 04/09/17 17:00 Sodium 135.0 mmol/L (137-145) L 04/11/17 06:03 Potassium 4.4 mmol/L (3.6-5.0) 04/11/17 06:03 Chloride 104 mmol/L (98-107) 04/11/17 06:03 Carbon Dioxide 25 mmol/L (22-30) 04/11/17 06:03 Anion Gap 6 (5-19) 04/11/17 06:03 BUN 15 mg/dL (7-20) 04/11/17 06:03 Creatinine 0.81 mg/dL (0.52-1.25) 04/11/17 06:03 Est GFR ( Amer) > 60 (>60) 04/11/17 06:03 Est GFR (Non-Af Amer) > 60 (>60) 04/11/17 06:03 Glucose 107 mg/dL (75-110) 04/11/17 06:03 Calcium 7.9 mg/dL (8.4-10.2) L 04/11/17 06:03 Magnesium 2.0 mg/dL (1.6-2.3) 04/11/17 06:03 Total Bilirubin 0.6 mg/dL (0.2-1.3) 04/11/17 06:03 Direct Bilirubin 0.4 mg/dL (0.0-0.4) 04/11/17 06:03 Indirect Bilirubin Not Reportable 04/11/17 06:03 Neonat Total Bilirubin Not Reportable 04/11/17 06:03 AST 71 U/L (17-59) H 04/11/17 06:03 ALT 48 U/L (21-72) 04/11/17 06:03 Alkaline Phosphatase 85 U/L (38-126) 04/11/17 06:03 Total Protein 6.0 g/dL (6.3-8.2) L 04/11/17 06:03 Albumin 2.8 g/dL (3.5-5.0) L 04/11/17 06:03 Vitamin B12 637.0 pg/mL (239-931) 04/10/17 10:41 Folate 9.64 ng/mL (>2.76) 04/10/17 10:41 Urine Color YELLOW 04/09/17 15:25 Urine Appearance CLEAR 04/09/17 15:25 Urine pH 6.0 (5.0-9.0) 04/09/17 15:25 Ur Specific [place] 1.012 04/09/17 15:25 Urine Protein NEGATIVE mg/dL (NEGATIVE) 04/09/17 15:25 Urine Glucose (UA) NEGATIVE mg/dL (NEGATIVE) 04/09/17 15:25 Urine Ketones NEGATIVE mg/dL (NEGATIVE) 04/09/17 15:25 Urine Blood NEGATIVE (NEGATIVE) 04/09/17 15:25 Urine Nitrite NEGATIVE (NEGATIVE) 04/09/17 15:25 Urine Bilirubin NEGATIVE (NEGATIVE) 04/09/17 15:25 Urine Urobilinogen 2.0 mg/dL (<2.0) H 04/09/17 15:25 Ur Leukocyte Esterase NEGATIVE (NEGATIVE) 04/09/17 15:25 Urine WBC (Auto) 1 /HPF 04/09/17 15:25 Urine RBC (Auto) 0 /HPF 04/09/17 15:25 Squamous Epi Cells Auto <1 /HPF 04/09/17 15:25 Urine Mucus (Auto) RARE /LPF 04/09/17 15:25 Urine Ascorbic Acid NEGATIVE (NEGATIVE) 04/09/17 15:25 Fluid Tube Number 3 04/10/17 13:36 CSF Volume 8.0 CC 04/10/17 13:36 CSF Appearance CLEAR 04/10/17 13:36 CSF Color COLORLESS 04/10/17 13:36 CSF WBC 1 /uL (0-5) 04/10/17 13:36 CSF RBC 2 /uL (0-800) 04/10/17 13:36 CSF Comment YES (CSFY) 04/10/17 13:36 CSF Glucose 47 mg/dL (40-70) 04/10/17 13:36 CSF Total Protein 43 mg/dL (12-60) 04/10/17 13:36 Leuk/Lym Specimen Cancelled 04/10/17 10:41 Leuk/Lym Spec Viability Cancelled 04/10/17 10:41 Leuk/Lym Gating Strategy Cancelled 04/10/17 10:41 Leuk/Lym Leuk Assess Cancelled 04/10/17 10:41 Leuk/Lym Comment Cancelled 04/10/17 10:41 Leuk/Lym Immunophen Prof Cancelled 04/10/17 10:41 Leuk/Lym Phenotype Chart Cancelled 04/10/17 10:41 Leuk/Lym Interpretation Cancelled 04/10/17 10:41 Leuk/Lym Final Diagnosis Cancelled 04/10/17 10:41 L/L Sign Pathologist Cancelled 04/10/17 10:41 Specimen Source CSF 04/10/17 13:36 Hepatitis C (GIDEON) >11.0 s/co ratio (0.0-0.9) H 04/10/17 10:41 Hepatitis C Comment Comment (.) 04/10/17 10:41 Monotest NEGATIVE (NEGATIVE) 04/09/17 15:25 HIV 1&2 Antibody NEGATIVE (NEGATIVE) 04/10/17 01:10 H.influenzae Type B Ag NEGATIVE (NEGATIVE) 04/10/17 13:36 N. meningitidis A/Y Ag NEGATIVE (NEGATIVE) 04/10/17 13:36 N.meningitid C/W135 Ag NEGATIVE (NEGATIVE) 04/10/17 13:36 N.meningi B/E.coli K1 Ag NEGATIVE (NEGATIVE) 04/10/17 13:36 Group B Strep Antigen NEGATIVE (NEGATIVE) 04/10/17 13:36 S. pneumoniae Antigen NEGATIVE (NEGATIVE) 04/10/17 13:36 Renetta Ink NEGATIVE (NEGATIVE) 04/10/17 13:36 Flow Cytometry Comment Cancelled 04/10/17 10:41 Cytology Clinical Info Cancelled 04/10/17 10:41 Cyt Clinician Prov ICD9 Cancelled 04/10/17 10:41 Slides for Path Review PATHOLOGIST REVIEWED 04/09/17 17:44 Impressions: Chest X-Ray 04/09/17 14:53 IMPRESSION: No acute finding. Head CT 04/09/17 18:42 IMPRESSION: No acute intracranial findings. Guidance Fluoroscopy 04/10/17 00:00 IMPRESSION: Lumbar puncture under fluoroscopy. No immediate complication. Lumbar Puncture 04/10/17 10:22 IMPRESSION: Lumbar puncture under fluoroscopy. No immediate complication. Abdomen Ultrasound 04/10/17 11:19 IMPRESSION: Splenomegaly, 20 cm in length Small amount of right subphrenic and gallbladder fossa free fluid. Gallbladder wall thickening, nonspecific in the setting of ascites Qualifiers [place] BEING DISCHARGED WITH ANY OF THE FOLLOWING DIAGNOSIS?: No Plan Time Spent: Less than 30 Minutes
[2017-04-11 09:21] VITALS: BP 136/54
[2017-04-11] MEDS: DOCUSATE SODIUM 100 MG CAPSULE PO SCH (09:30)
[2017-04-11] MEDS: OXYCODONE HCL IR 5 MG TABLET PO PRN (09:31)
[2017-04-11] MEDS ORDERED: CEFTRIAXONE 1 GM/D5W RTU 50 ML IV SCH (10:00)
[2017-04-11] MEDS ORDERED: CETIRIZINE 10 MG TABLET PO SCH (10:00)
--- NOTE | 2017-04-11 10:57 | PDOC CONSULTATION ---
Consultation Consult Date: 04/11/17 Attending physician:: EDWINA MCCALL Consult reason:: pancytopenia, history of chronic Hep C History of Present Illness Admission Date/PCP: 04/10/17 15:25 History of Present Illness: patient was admitted for pancytopenia has a history of hep C, chronic had been treated with combination therapy in the past patient present with weight loss and having abdominal pain, and diarrhea patient does have family members that are ill patient states no nausea or vomiting some of his symptoms have resolved will need to have hep C evaluation as an outpatient will evaluate his genotype, RNA viral load and will get a Fibrosure test ? of whether he would be a candidate for Harvoni treatment patient currently not a candidate since has pancytopenia Heme Onc is following positive for joint pain Past Medical History Cardiac Medical History: Reports: Hyperlipidema, Hypertension, Other - aortic dissection 2001 Denies: Congestive Heart Failure, Myocardial Infarction Pulmonary Medical History: Denies: Asthma, Bronchitis, Chronic Obstructive Pulmonary Disease (COPD), Pneumonia, Tuberculosis Neurological Medical History: Denies: Seizures Renal/ Medical History: Denies: End Stage Renal Disease GI Medical History: Reports: Gastroesophageal Reflux Disease, Other - Chronic treated hepatitis C Denies: Cirrhosis Musculoskeltal Medical History: Denies: Arthritis Psychiatric Medical History: Denies: Bipolar Disorder, Depression Hematology: Denies: Anemia, Bleeding Tendencies Past Surgical History Past Surgical History: Reports: Other - Aortic aneurysm repair Social History Lives with: Family Smoking Status: Never Smoker Frequency of Alcohol Use: None Drugs: None - Advance Directive Resuscitation Status: Full Code Family History Family History: DM, Other - Denies lymphoma or leukemia Parental Family History Reviewed: Yes Children Family History Reviewed: Unknown Sibling(s) Family History Reviewed.: Unknown Medication/Allergy Home Medications: Cetirizine HCl [Zyrtec 10 mg Tablet] 10 mg PO DAILY 04/10/17 Hydrochlorothiazide 25 mg PO DAILY 04/10/17 Losartan Potassium [Cozaar 100 mg Tablet] 100 mg PO DAILY 04/10/17 Omeprazole 40 mg PO DAILY 04/10/17 Doxycycline Hyclate 100 mg PO BID #20 capsule 04/11/17 Fluticasone Propionate [Flonase Nasal [place] 50 Mcg/[place] 16 gm] 1 spray NASL Q12 #1 inhaler 04/11/17 Metoprolol Succinate [Toprol XL 100 mg Tablet] 100 mg PO DAILY #0 04/11/17 Tramadol HCl 50 mg PO Q8HP PRN #20 tablet 04/11/17 Allergies/Adverse Reactions: No Known Allergies Allergy (Unverified 04/10/17 00:47) Review of Systems Constitutional: PRESENT: weakness, weight loss. ABSENT: night sweats Eyes: ABSENT: visual disturbances Ears: ABSENT: hearing changes Cardiovascular: ABSENT: chest pain, orthropnea, palpitations Respiratory: PRESENT: dyspnea. ABSENT: hemoptysis Gastrointestinal: PRESENT: diarrhea. ABSENT: dysphagia, hematochezia Genitourinary: ABSENT: dysuria, hematuria Musculoskeletal: ABSENT: deformity, joint swelling Integumentary: ABSENT: lesions, pruritus Neurological: ABSENT: syncope, tingling, tremor(s), vertigo Endocrine: ABSENT: polydipsia, polyphagia, polyuria Hematologic/Lymphatic: ABSENT: lymphadenopathy Physical Exam Vital Signs: Temp Pulse Resp BP Pulse Ox 97.9 F 62 20 136/54 H 98 04/11/17 10:18 04/11/17 10:18 04/11/17 10:18 04/11/17 10:18 04/11/17 10:18 Intake & Output 04/10/17 04/11/17 04/12/17 06:59 06:59 06:59 Intake Total 1200 Balance 1200 Weight 102.1 kg General appearance: PRESENT: no acute distress, well-developed, well-nourished Head exam: PRESENT: atraumatic, normocephalic Eye exam: PRESENT: EOMI, PERRLA. ABSENT: periorbital swelling, scleral icterus Mouth exam: PRESENT: moist Throat exam: ABSENT: tonsillar exudate Neck exam: ABSENT: meningismus, tenderness, thyromegaly Respiratory exam: PRESENT: symmetrical, unlabored. ABSENT: chest wall tenderness, wheezes Cardiovascular exam: PRESENT: RRR, +S1, +S2 GI/Abdominal exam: PRESENT: soft. ABSENT: Hernandez's sign, rebound, rigid Extremities exam: PRESENT: full ROM. ABSENT: clubbing Neurological exam: PRESENT: oriented to time, oriented to situation, reflexes normal Skin exam: PRESENT: normal color. ABSENT: mottled, pallor, petechiae, urticaria , vesicles Results Laboratory Results: 04/11/17 06:03 04/11/17 06:03 04/11/17 04/11/17 06:03 06:03 WBC 1.9 L RBC 3.92 L Hgb 12.3 L Hct 36.6 L MCV 93 MCH 31.3 MCHC 33.5 RDW 14.4 H Plt Count 55 L Seg Neutrophils % Not Reportable Lymphocytes % Not Reportable Monocytes % Not Reportable Eosinophils % Not Reportable Basophils % Not Reportable Absolute Neutrophils Not Reportable Absolute Lymphocytes Not Reportable Absolute Monocytes Not Reportable Absolute Eosinophils Not Reportable Absolute Basophils Not Reportable Sodium 135.0 L Potassium 4.4 Chloride 104 Carbon Dioxide 25 Anion Gap 6 BUN 15 Creatinine 0.81 Est GFR ( Amer) > 60 Est GFR (Non-Af Amer) > 60 Glucose 107 Calcium 7.9 L Magnesium 2.0 Total Bilirubin 0.6 AST 71 H ALT 48 Alkaline Phosphatase 85 Total Protein 6.0 L Albumin 2.8 L Impressions: Chest X-Ray 04/09/17 14:53 IMPRESSION: No acute finding. Head CT 04/09/17 18:42 IMPRESSION: No acute intracranial findings. Guidance Fluoroscopy 04/10/17 00:00 IMPRESSION: Lumbar puncture under fluoroscopy. No immediate complication. Lumbar Puncture 04/10/17 10:22 IMPRESSION: Lumbar puncture under fluoroscopy. No immediate complication. Abdomen Ultrasound 04/10/17 11:19 IMPRESSION: Splenomegaly, 20 cm in length Small amount of right subphrenic and gallbladder fossa free fluid. Gallbladder wall thickening, nonspecific in the setting of ascites Assessment & Plan - Diagnosis (1) Hepatitis C Qualifiers: Viral hepatitis chronicity: chronic Is this a current diagnosis for this admission?: YesPlan: Chronic hepatitis C with previous treatment. Currently having pancytopenia. Can get evaluated as an outpatient. Will check Fibrosure, HCV RNA and genotype. May be a candidate for Harvoni treatment once his pancytopenia has resolved. We will need cirrhotic workup. Likely having gastroenteritis that brought him to the hospital. Would likely resolve. Can see as outpatient. We will get PPD placed if possible - Time Time Spent: 50 to 70 Minutes
[2017-04-11 13:39] LABS: ANTIPROTEINASE 3 (PR-3) AB <3.5 U/mL (0.0-3.5); CYTOPLASMIC (C-ANCA) <1:20 titer (Neg:<1:20)
[2017-04-11 14:55] LABS: LYME DISEASE IGG AND IGM AB <0.91 ISR (0.00-0.90)
[2017-04-12 07:11] LABS: ROCKY MTN SPOTTED FEV IGG EIA Negative (Negative)
== END 2017-04-11 11:43 | disposition home or self-care (01) | DRG 810 ==
LOC: ER 13:17 → EH 20:27 → UNDOADMOB 21:27 → 4S 23:52 → OBSVTOIN 04-10 15:25
PROVIDERS: ADMIT Internal Medicine; ATTEND Internal Medicine
PROC: 009U3ZX Drainage of Spinal Canal, Percutaneous Approach, Diagnostic (ICD-10-PCS; principal; 2017-04-10)
DX: D61.818 Other pancytopenia (principal); J32.9 Chronic sinusitis, unspecified; B18.2 Chronic viral hepatitis C; K74.60 Unspecified cirrhosis of liver; I10 Essential (primary) hypertension; E78.5 Hyperlipidemia, unspecified; K21.9 Gastro-esophageal reflux disease without esophagitis; Z79.899 Other long term (current) drug therapy
CPT/HCPCS: 36415; 62270; 70450; 71020; 76700; 77003; 80053; 81001; 82607; 82746; 82945; 83516; 83735; 84157; 85025; 85610; 85652; 86038; 86256; 86308; 86403; 86617; 86618; 86701; 86757; 86803; 86804; 87040; 87070; 87205; 87210; 87252; 88184; 88185; 89050; 93005; 93010; 93976; 96360; 96372; 99285; G0378; J0133; J0295; J0696; J1644; J3370; J7030; J7050; J7060